=== PATIENT | female | born 1970 | race Caucasian/White ===

== ENCOUNTER 2023-12-03 22:49 | Emergency (ER) | payer MEDICARE, OTHER ==
[~2023-12-03] VITALS: Ht 175.3 cm; Wt 75.0 kg
[~2023-12-03 22:49] MED LIST: CYCL-839 PO; DICL50TA2 PO
[2023-12-03 22:51] VITALS: BP 105/50; PULSE 87; RESP 16; O2SAT 96
[2023-12-04 00:30] LABS: Urine Bacteria FEW /hpf (None Seen); Urine Blood Negative /uL (Negative); Urine Clarity Clear (Clear); Urine Color Yellow (Yellow); Urine Mucus FEW (None Seen); Urine Protein, UAD TRACE (Negative); Urine Specific Gravity 1.032 (1.001-1.035); Urine Urobilinogen 2 mg/dL (Negative); Urine WBC 20 /hpf (0 - 5); Urine pH 6.5 (5.0-9.0)
[2023-12-04] MEDS ORDERED: CEPH500C PO (04:59)
== END 2023-12-04 03:53 | disposition left against medical advice (07) ==
LOC: ER 22:49
DX: N39.0 Urinary tract infection, site not specified (principal); R42 Dizziness and giddiness; F17.210 Nicotine dependence, cigarettes, uncomplicated; F15.90 Other stimulant use, unspecified, uncomplicated; Z79.899 Other long term (current) drug therapy
CPT/HCPCS: 81001